=== PATIENT | female | born 1955 | race Caucasian/White ===

== ENCOUNTER 2017-06-27 13:41 | Emergency (ER) | payer BC ==
[2017-06-27 14:54] VITALS: BP 130/82
--- NOTE | 2017-06-27 15:00 | UC ---
Throat Pain/Nasal Corey HPI - HPI Summary HPI Summary: 62 y/o female presents to the urgent care c/o sore throat for the past 5 days. Pain is 4/10 w/ swallowing. Pt states her sister and grand daughter Dx w/ strep recently. Pt denies fever, cough, MAHER, body aches, nasal congestion, SOB, chest pain, abdominal pain, N/V/D. She has taking Mucinex PO to alleviate symptoms. . - History of Current Complaint Chief Complaint: UCGeneralIllness Stated Complaint: SORE THROAT Time Seen by Provider: 06/27/17 14:57 Hx Obtained From: Patient Onset/Duration: Gradual Onset, Lasting Days - 5 days, Still Present, Worse Since - yesterday Severity: Moderate Pain Intensity: 4 Pain Scale Used: 0-10 Numeric Cough: None Associated Signs & Symptoms: Positive: Dysphagia. Negative: Hoarseness, Nasal Discharge, Fever - Epiglottits Risk Factors Epiglottis Risk Factors: Negative - Allergies/Home Medications Allergies/Adverse Reactions: Allergies Allergy/AdvReac Type Severity Reaction Status Date / Time ENVIRONMENTAL Allergy SCRATCHY Uncoded 06/27/17 14:51 THROAT AND HEADACHE Home Medications: Home Medications Simvastatin TAB(NF) [Zocor 20 MG (NF)] 20 mg PO 1700 06/27/17 [History Confirmed 06/27/17] PMH/Surg Hx/FS Hx/Imm Hx Previously Healthy: Yes Endocrine History: Dyslipidemia Other Respiratory History: seasonal allergies - Surgical History Surgical History: Yes Surgery Procedure, Year, and Place: 1999 HYSTERECTOMY, [facility]. 04/2012, RIGHT VERICOSE VEINS, [facility]. 1960 APPENDECTOMY, [facility] - Family History Known Family History: Positive: Cardiac Disease, Hypertension, Diabetes - Social History Occupation: Employed Full-time Lives: With Family Alcohol Use: Occasionally Substance Use Type: None Smoking Status (MU): Never Smoked Tobacco Review of Systems Constitutional: Negative Skin: Negative Eyes: Negative ENT: Sore Throat Respiratory: Negative Cardiovascular: Negative Gastrointestinal: Negative Genitourinary: Negative Motor: Negative Neurovascular: Negative Musculoskeletal: Negative Neurological: Negative Psychological: Negative Is Patient Immunocompromised?: No All Other Systems Reviewed And Are Negative: Yes Physical Exam Triage Information Reviewed: Yes Vital Signs: Initial Vital Signs Temp 98.5 F 06/27/17 14:50 Pulse 72 06/27/17 14:50 Resp 18 06/27/17 14:50 BP 130/82 06/27/17 14:50 Pulse Ox 100 06/27/17 14:50 - Additional Comments VITAL SIGNS: Reviewed. GENERAL: Patient is a well developed and nourished female who is sitting comfortable in the examining table. Patient is not in any acute respiratory distress. HEAD AND FACE: No signs of trauma. No ecchymosis, hematomas or skull depressions. No sinus tenderness. EYES: PERRLA, EOMI x 2, No injected conjunctiva, no nystagmus. No photophobia. EARS: Hearing grossly intact. Ear canals and tympanic membranes are within normal limits. MOUTH: Positive pharynx with erythema, no exudates, mild palatal petechiae. NO B/L tonsillar enlargement with exudate. Uvula in midline. NECK: Supple, trachea is midline, Positive anterior cervical lymphadenopathy, no JVD, no carotid bruit, no c-spine tenderness, neck with full ROM. No meningeal signs, no Kernig's or brudzinskis signs. CHEST: Symmetric, no tenderness at palpation LUNGS: Clear to auscultation bilaterally. No wheezing or crackles. CVS: Regular rate and rhythm, S1 and S2 present, no murmurs or gallops appreciated. ABDOMEN: Soft, non-tender. No signs of distention. No rebound no guarding, and no masses palpated. Bowel sounds are normal. EXTREMITIES: FROM in all major joints, no edema, no cyanosis or clubbing. NEURO: Alert and oriented x 3. No acute neurological deficits. Speech is normal and follows commands. SKIN: Dry and warm Throat Pain/Nasal Course/Dx - Course Course Of Treatment: 62 y/o female presents to the urgent care c/o sore throat for the past 5 days. Pain is 4/10 w/ swallowing. Pt states her sister and grand daughter Dx w/ strep recently. Pt denies fever, cough, MAHER, body aches, nasal congestion, SOB, chest pain, abdominal pain, N/V/D. She has taking Mucinex PO to alleviate symptoms.Hx obtained. - Differential Dx/Diagnosis Differential Diagnosis/HQI/PQRI: Influenza, Laryngitis, Mononucleosis, Pharyngitis, Sinusitis, Tonsillitis Provider Diagnoses: 1- Viral pharyngitis Discharge - Discharge Plan Condition: Stable Disposition: HOME Patient Education Materials: Pharyngitis (ED) Referrals: Katalina Garay MD [Primary Care Provider] - If Needed Additional Instructions: 1-Please take ibuprofen PO 600mg q6-8hrs prn as instructed after meals to alleviate pain and swelling. Increase fluid intake, eat well, rest and avoid strenuous exercise 2-If symptoms do not improve or worsen please return to the urgent care or f/u with your PCP for further evaluation and treatment.
== END 2017-06-27 15:33 | disposition home or self-care (01) ==
LOC: UCCORT 13:41
DX: J02.8 Acute pharyngitis due to other specified organisms (principal); E78.5 Hyperlipidemia, unspecified
CPT/HCPCS: 87651; 99211; G0463

== ENCOUNTER 2019-05-08 07:01 | Emergency (ER) | payer BC ==
--- NOTE | 2019-05-08 07:12 | UC ---
UC General HPI - HPI Summary HPI Summary: Yesterday woke up with a dry mouth and this morning it was mildly sore. 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 No fever. Had a very bad URI about a week ago and has since gotten better. No fever, mild cough, no congestion. Does have PND. No CP or SOB. Good PO. Meds : reviewed - History of Current Complaint Stated Complaint: SORE THROAT Time Seen by Provider: 05/08/19 07:01 - Allergy/Home Medications Allergies/Adverse Reactions: Allergies Allergy/AdvReac Type Severity Reaction Status Date / Time ENVIRONMENTAL Allergy SCRATCHY Uncoded 05/08/19 07:15 THROAT AND HEADACHE Home Medications: Home Medications Dm/Acetaminophen/Doxylamine [Vicks Nyquil Cold & Flu N] 1 liq PO QPM PRN [History Confirmed 05/08/19] PMH/Surg Hx/FS Hx/Imm Hx Previously Healthy: Yes Endocrine History: Dyslipidemia - Surgical History Surgical History: Yes Surgery Procedure, Year, and Place: 1999 HYSTERECTOMY, [facility]. 04/2012, RIGHT [place]ICOSE VEINS, [facility] [place]. 1960 APPENDECTOMY, [facility] - Family History Known Family History: Positive: Cardiac Disease, Hypertension, Diabetes - Social History Alcohol Use: Occasionally Substance Use Type: None Smoking Status (MU): Never Smoked Tobacco Review of Systems All Other Systems Reviewed And Are Negative: Yes Constitutional: Positive: Negative Skin: Positive: Negative ENT: Positive: Sore Throat Respiratory: Positive: Cough Physical Exam Triage Information Reviewed: Yes Appearance: Well-Appearing ENT: Positive: Pharyngeal erythema, TMs normal, Tonsillar swelling Neck: Positive: Supple, Nontender Respiratory: Positive: Lungs clear, Normal breath sounds Cardiovascular: Positive: RRR, No Murmur Course/Dx - Course Course Of Treatment: This is a 64 yr old with a sore throat. Rapid strep negative Viral pharyngitis Plan Recommend rest,fluids and good hand washing Can do trial of salt water rinses for sore throat Rapid strep test was negative. If symptoms persist or worsen, recommend follow up with your PCP or return to urgent care Your blood pressure was elevated today, recommend recheck when you are feeling better, if still elevated, follow up with your PCP - Diagnoses Provider Diagnosis: Pharyngitis Discharge ED - Sign-Out/Discharge Documenting (check all that apply): Patient Departure All imaging exams completed and their final reports reviewed: No Studies - Discharge Plan Condition: Good Disposition: HOME Patient Education Materials: Pharyngitis (ED) Referrals: Katalina Garay MD [Primary Care Provider] - Additional Instructions: Recommend rest,fluids and good hand washing Can do trial of salt water rinses for sore throat Rapid strep test was negative. If symptoms persist or worsen, recommend follow up with your PCP or return to urgent care Your blood pressure was elevated today, recommend recheck when you are feeling better, if still elevated, follow up with your PCP - Billing Disposition and Condition Condition: GOOD Disposition: Home
[2019-05-08 07:14] VITALS: BP 156/91
== END 2019-05-08 07:44 | disposition home or self-care (01) ==
LOC: UCCORT 07:01
DX: J02.9 Acute pharyngitis, unspecified (principal); Z91.09 Other allergy status, other than to drugs and biological substances
CPT/HCPCS: 87651; 99211; G0463